=== PATIENT | female | born 1960 | race Caucasian/White ===

== ENCOUNTER 2024-01-06 08:09 | Emergency (ER) | payer MEDICARE, SELFPAY ==
[2024-01-06 08:10] VITALS: BP 178/110
--- NOTE | 2024-01-06 08:14 | ED.GENMED ---
History of Present Illness
General
Chief Complaint: Abdominal Pain
Time Seen by Provider: 01/06/24 08:13
Travel History
Have you had any contact with someone who has COVID-19?: No
Do you have any symptoms of coronavirus? Fever > 100 degrees, chills, cough, shortness of breath, sore throat, loss of taste or smell, muscle aches, or headache?: No
History of Present Illness
History of Present Illness:
HPI: The patient presents with right-sided abdominal pain. She points to the mid axillary line of the abdomen indicating the location of the pain. She has had pain like this several times in the past. She has no nausea, vomiting, diarrhea, or
constipation. She denies any other symptoms such as headaches or fevers. She has had similar kind of pain in the past. She still has a good appetite currently.
EXAM:
GENERAL: Well appearing in no distress
HEENT: Moist oral mucosa
CARDIOVASCULAR: No murmurs, normal heart rate and rhythm, No chest wall tenderness
PULMONARY: No respiratory distress, breath sounds are clear and equal
ABDOMEN: Soft with no peritoneal signs, there is very mild tenderness in the left side of the abdomen tenderness in the right lower quadrant, there is no right upper quadrant tenderness, elevated BMI noted
NEUROLOGIC: Excellent strength all extremities, no coordination deficits
PSYCHIATRIC: Appropriate mental status, normal insight and judgement
EXTREMITIES: Nontender, no edema, moves all extremities equally
SKIN: No rash, no lesions
ED COURSE:
8:20 AM: I initially evaluated
NUMBER AND COMPLEXITY OF PROBLEMS ADDRESSED AT THE ENCOUNTER
� Chronic conditions affecting care: IBS, history of anxiety/depression, has had hysterectomy and cholecystectomy, hypothyroidism
� Acute Exacerbation and/or Progression of Chronic Illness: This is an acute problem however the patient has had similar unexplained episodes in the past
� Differential Diagnosis includes: Exacerbation of IBS, diverticulitis, appendicitis, abdominal muscle strain
AMOUNT AND/OR COMPLEXITY OF DATA TO BE REVIEWED AND ANALYZED
� I performed an independent evaluation of and my interpretation is:
EKG:
CT: CT shows normal appendix. I did review radiologist interpretation in which MRCP is recommended as well however the pain is much lower.
X-rays:
Laboratory Studies: CBC normal, chemistries including LFTs and lipase are normal, urinalysis is unremarkable
Other:
� Review of other/old records: I reviewed old records. The patient had a colonoscopy in November 2022iverticulosis was noted. The patient had a CAT scan of the abdomen pelvis with oral and IV contrast in 2019 that was
unremarkable.
� Clinical information was obtained by an independent historian: None needed, but I did speak to the on reassessment at 10:40 AM
� Prescriptions/Medications Considered but not given:
� Further testing considered but not performed:
RISK OF COMPLICATIONS AND/OR MORBIDITY OR MORTALITY OF PATIENT MANAGEMENT
� Social determinants of health affecting care: Lives at home
� Discussion with other providers:
� Escalation of care including admission/observation vs risk of discharge considered: Given the patient's age with diffuse but mild tenderness, CT imaging was obtained which was relatively unremarkable. On reassessment at 10:40
AM, the patient appears fairly comfortable. I reviewed all results with patient and need for MRI/MRCP as an outpatient.
Past History
Past History
ED Past Medical History: Hypothyroidism and Psychiatric (Depression)
ED Past Surgical History: Cholecystectomy (2019) and Gynecological (Hysterectomy, unilateral salpingo-oophorectomy)
Social History
Tobacco: Non-smoker
Alcohol: Occasional
Personal:
Living: with family
Employment: Employed
Family History
Family History: CAD
Phy Exam
Physical Exam
Physical Exam:
See HPI
Course
Orders/Labs/Results
Orders:
Orders
01/06/24 08:28
CT Abd/pelvis W Iv Cont Urgent
Comment:
Reason For Exam: R>L abd pain
01/06/24 08:29
0.9% Sodium Chloride 1000 ml [Nss] 1,000 ml IV BOLUS
01/06/24 08:33
Complete Blood Count/With Diff Urgent
Comprehensive Metabolic Panel Urgent
Lipase Urgent
Urinalysis Reflex To Culture Urgent
Date Specimen was Collected: 01/06/24
Time Specimen was Collected: 08:31
Abnormal Lab Results
01/06/24
08:33
MPV 10.7 H fL
(7.4-10.4)
Eosinophils % 6.3 H %
(0-6)
Chloride 109 H mmol/L
(98-107)
01/06/24 08:33
01/06/24 08:33
Vital Signs
Initial and Last Documented VS:
Initial Vital Signs
Temp Pulse Resp BP Pulse Ox
97.9 F 88 16 178/110 97
01/06/24 08:10 01/06/24 08:10 01/06/24 08:10 01/06/24 08:10 01/06/24 08:10
Last Documented Vital Signs
Temp Pulse Resp BP Pulse Ox
97.9 F 88 16 178/110 94
01/06/24 08:10 01/06/24 08:10 01/06/24 08:10 01/06/24 08:10 01/06/24 09:00
*Critical Care Note
Total Time (30-74mins, 75-104mins- exclusive of procedures): Not Applicable
ED Attending Note
-
Portions of this chart may have been created with voice recognition software.� Occasional wrong word or��sound alike� substitutions may have occurred due to the inherent limitations of voice recognition software.
Discharge Plan
Departure
Prescriptions:
No Action
levothyroxine 88 MCG tablet
88 mcg PO DAILY
alprazolam 0.5 MG tablet
0.5 mg PO Q6HPRN PRN (Reason: as directed)
sertraline 50 MG tablet
50 mg PO HS
ondansetron 4 MG tablet,disintegrating
4 mg PO TIDPRN PRN (Reason: nausea/vomiting) Qty: 6 0RF
Referrals:
Gray Karimi, DO [Family Provider] -
Interventions
Interventions:
*Risk Screen - Suicide Last Done: 01/06/24 08:44
*General Assessment Last Done: 01/06/24 08:44
*Neglect/Abuse Screening Last Done: 01/06/24 08:44
*ED COVID-19 Vaccine History Last Done: 01/06/24 08:10
[facility] Assessment Last Done: 01/06/24 08:44
[2024-01-06] MEDS: NSS 1000 IV (08:42)
[2024-01-06 08:43] VITALS: BMI 35.2
[2024-01-06 09:17] LABS: % Eosinophils 6.3 % (0-6); % Immature Granulocytes 0.5 % (0-0.5); % Monocytes 6.8 % (1.7-9.3); % Neutrophils 54.4 % (42.2-75.2); Absolute Basophils 0.1 10^3/uL (0-0.2); Absolute Eosinophils 0.4 10^3/uL (0-0.7); Absolute Lymphocytes 1.9 10^3/uL (1.2-3.4); Absolute Monocytes 0.4 10^3/uL (0.1-0.6); Absolute Neutrophils 3.4 10^3/uL (1.4-6.5); Hematocrit 43.4 % (37.0-47.0); Hemoglobin 14.7 g/dL (12.0-16.0); Mean Corp Hgb Conc. 33.9 g/dL (33.0-37.0); Mean Corpuscular Hgb 29.3 pg (27.0-31.0); Mean Corpuscular Volume 86.5 fL (81.0-99.0); Mean Platelet Volume 10.7 fL (7.4-10.4); Nucleated Red Blood Cells % 0 %; Platelet Count 208 10^3/uL (130-400); Red Blood Cell Count 5.02 10^6/uL (4.20-5.40); Red Cell Dist. Width 13.7 % (11.5-14.5); White Blood Cell Count 6.2 10^3/uL (4.8-10.8)
[2024-01-06 09:25] LABS: Urine Albumin Negative (Neg - Trace); Urine Bilirubin Negative (Negative); Urine Character Clear (Clear); Urine Color Yellow; Urine Glucose Negative (Negative); Urine Ketone Negative (Negative); Urine Leukocyte Negative (Negative); Urine Nitrite Negative (Negative); Urine Occult Blood Negative (Negative); Urine Urobilinogen Negative (Neg - 1+)
[2024-01-06 09:31] LABS: ALT (SGPT) 27 U/L (0-35); AST (SGOT) 21 U/L (14-36); Albumin 4.1 g/dl (3.5-5.0); Alkaline Phosphatase 114 U/L (38-126); Blood Urea Nitrogen 15 mg/dl (7-17); Calcium 8.7 mg/dl (8.4-10.2); Carbon Dioxide 24 mmol/L (22-30); Chloride 109 mmol/L (98-107); Estimated Creatinine Clearance 96 ml/min; Glucose 86 mg/dl (70-99); Lipase 109 U/L (23-300); Potassium 4.3 mmol/L (3.5-5.1); Sodium 139 mmol/L (135-145); Total Bilirubin 0.8 mg/dl (0.2-1.3); Total Protein 6.4 g/dl (6.3-8.2); eGFR > 60.00
[2024-01-06 10:46] VITALS: BP 167/94
== END 2024-01-06 11:16 | disposition home or self-care (01) ==
LOC: EMR 08:09
PROVIDERS: EMERGENCY PHYSICIAN Emergency Medicine; FAMILY PHYSICIAN Family Medicine
DX: R10.9 Unspecified abdominal pain (principal); F41.9 Anxiety disorder, unspecified; F32.A Depression, unspecified
CPT/HCPCS: 99285; 96360; 74177; 80053; 81003; 83690; 85025; Q9967

== ENCOUNTER → 2024-01-14 19:29 | Outpatient (REF) | payer MEDICARE, SELFPAY | LOC: MRI 19:29 | PROVIDERS: ATTENDING PHYSICIAN Family Medicine | DX: K86.89 Other specified diseases of pancreas (principal) | CPT/HCPCS: 74183; A9575 ==

== ENCOUNTER → 2024-08-16 18:51 | Outpatient (REF) | payer MEDICARE, SELFPAY | LOC: MRI 18:51 | PROVIDERS: ATTENDING PHYSICIAN Internal Medicine Gastroenterology; PRIMARYCARE PHYSICIAN Family Medicine | DX: K86.2 Cyst of pancreas (principal) | CPT/HCPCS: 74183; A9575 ==

== ENCOUNTER 2025-01-23 14:33 | Emergency (ER) | payer MEDICARE, SELFPAY ==
[2025-01-23 14:35] VITALS: BP 141/101
[2025-01-23 15:21] LABS: % Basophils 1.2 % (0-2); % Immature Granulocytes 0.3 % (0-0.5); % Lymphocytes 38.1 % (20.5-51.1); % Monocytes 6.4 % (1.7-9.3); Absolute Basophils 0.1 10^3/uL (0-0.2); Absolute Eosinophils 0.5 10^3/uL (0-0.7); Absolute Lymphocytes 2.6 10^3/uL (1.2-3.4); Absolute Monocytes 0.4 10^3/uL (0.1-0.6); Absolute Neutrophils 3.2 10^3/uL (1.4-6.5); Hematocrit 40.6 % (37.0-47.0); Hemoglobin 13.9 g/dL (12.0-16.0); Mean Corp Hgb Conc. 34.2 g/dL (33.0-37.0); Mean Corpuscular Hgb 29.3 pg (27.0-31.0); Mean Corpuscular Volume 85.7 fL (81.0-99.0); Nucleated Red Blood Cells % 0 %; Platelet Count 222 10^3/uL (130-400); Red Blood Cell Count 4.74 10^6/uL (4.20-5.40); Red Cell Dist. Width 13.2 % (11.5-14.5); White Blood Cell Count 6.7 10^3/uL (4.8-10.8)
[2025-01-23 15:22] LABS: Urine Albumin Negative (Neg - Trace); Urine Bilirubin Negative (Negative); Urine Character Clear (Clear); Urine Color Yellow; Urine Glucose Negative (Negative); Urine Ketone Negative (Negative); Urine Leukocyte 3+ (Negative); Urine Nitrite Negative (Negative); Urine Occult Blood Negative (Negative); Urine Specific Gravity 1.015 (<1.030); Urine Urobilinogen Negative (Neg - 1+)
[2025-01-23 15:32] LABS: ALT (SGPT) 18 U/L (0-35); AST (SGOT) 17 U/L (14-36); Albumin 4.6 g/dl (3.5-5.0); Alkaline Phosphatase 59 U/L (38-126); Blood Urea Nitrogen 20 mg/dl (7-17); Calcium 9.1 mg/dl (8.4-10.2); Carbon Dioxide 27 mmol/L (22-30); Chloride 103 mmol/L (98-107); Glucose 73 mg/dl (70-99); Potassium 3.8 mmol/L (3.5-5.1); Sodium 139 mmol/L (135-145); Total Bilirubin 1.3 mg/dl (0.2-1.3); Total Protein 6.5 g/dl (6.3-8.2); eGFR > 60.00
[2025-01-23 15:33] LABS: Lipase 120 U/L (23-300)
[2025-01-23 15:49] LABS: Urine Red Blood Cell 0-2 /HPF (0-2); Urine Squamous Cell 16-20 /LPF (Few)
[2025-01-23 15:50] LABS: Urine Amorphous Seen; Urine Bacteria Many (Negative); Urine White Cell 16-20 /HPF (0-5)
[2025-01-23 17:07] VITALS: BMI 26.7
--- NOTE | 2025-01-23 17:07 | ED.GENMED ---
History of Present Illness
General
Chief Complaint: Abdominal Pain
Source: patient
Exam Limitations: none
Time Seen by Provider: 01/23/25 16:34
Nursing documentation reviewed up to this point in time: agreed with
History of Present Illness
History of Present Illness:
Patient to ED with complaint of right sided chest pain and generalized chest tightness. Symptoms started last week. She was seen by PCP, blood work ordered. She was told to come to ED if symmptoms worsenened. States symmptoms are constant and
seems worse today. Brought self to ED for eval. Denies fever/chills, recent illness. No n/v/d. Denies cough. NO leg pain or swelling. No prior history of same.
Past History
Past History
ED Past Medical History: Hypothyroidism and Psychiatric (Depression)
ED Past Surgical History: Cholecystectomy (2019) and Gynecological (Hysterectomy, unilateral salpingo-oophorectomy)
Social History
Tobacco: Non-smoker
Alcohol: Occasional
Personal:
Living: with family
Employment: Employed
Family History
Family History: CAD
Review of Systems
Review of Systems
Allergies reviewed?: Yes
All Other Systems: ROS reviewed and negative except as documented in HPI and ROS
Constitutional: Reports no symptoms
EENT: Reports no symptoms
Respiratory: Reports no symptoms
Cardiac: Reports chest pain (Right sided chest pain radiating to right shoulder) and other (generalized chest tightness.)
ABD/GI: Reports no symptoms
: Reports no symptoms
Musculoskeletal: Reports no symptoms
Skin: Reports no symptoms
Neurological: Reports no symptoms
Psychiatric: Reports no symptoms
Phy Exam
General Physical Exam
General Presentation: well appearing and no apparent distress
General age: appears stated age
General Skin: warm and dry
General Habitus: normal
General Mental: alert
Cardiovascular Exam
Cardiovascular Exam: regular rate/rhythm and no edema
Pulmonary Exam
Pulmonary Exam: lungs clear and no respiratory distress
Gastrointestinal Exam
Gastrointestinal Exam: normal bowel sounds, non tender, soft, no organomegaly, no pulsatile mass and no cva tenderness
Musculoskeletal Exam
Musculoskeletal Exam: full ROM and neuro vasc intact
Skin Exam
Skin Exam: normal color, warm/dry and no rash
Psychiatric Exam
Psychiatric Exam: normal mood/affect
Course
Orders/Labs/Results
Orders:
Orders
01/23/25 14:43
EKG [Electrocardiogram (*1)] Urgent
Reason for Study: Abdominal Pain
EKG- Treatment ONCE
01/23/25 15:05
Complete Blood Count/With Diff Urgent
Comprehensive Metabolic Panel Urgent
Lipase Urgent
Urinalysis Reflex To Culture Urgent
Date Specimen was Collected: 01/23/25
Time Specimen was Collected: 14:43
Urine Microscopic Reflex Cult Urgent
Urine Culture Urgent
BRUCE Source: U
Specimen Description:
Date Specimen was Collected: 01/23/25
Time Specimen was Collected: 14:43
01/23/25 17:22
D-Dimer Urgent
Troponin I Urgent
01/23/25 18:11
CR Chest - 2 Views Urgent
Comment:
Reason For Exam: right chest pain
US Abdomen Complete/Upper Urgent
Comment:
Reason For Exam: upper abd. pain
Abnormal Lab Results
01/23/25
15:05
Eosinophils % 7.0 H %
(0-6)
BUN 20 H mg/dl
(7-17)
Leukocyte Esterase Rfl 3+ A
(Negative)
Urine WBC (Reflex) 16-20 A /HPF
(0-5)
Urine Bacteria (Reflex) Many A
(Negative)
01/23/25 15:05
01/23/25 15:05
Vital Signs
Initial and Last Documented VS:
Initial Vital Signs
Temp Pulse Resp BP Pulse Ox
98.2 F 95 16 141/101 100
01/23/25 14:35 01/23/25 14:35 01/23/25 14:35 01/23/25 14:35 01/23/25 14:35
Last Documented Vital Signs
Temp Pulse Resp BP Pulse Ox
98.2 F 77 18 120/96 97
01/23/25 14:35 01/23/25 20:15 01/23/25 20:15 01/23/25 20:00 01/23/25 20:00
*Radiology
Radiology exam reviewed: radiology read reviewed
*Pulse Oximetry
Patient hypoxic: no
*Critical Care Note
Total Time (30-74mins, 75-104mins- exclusive of procedures): Not Applicable
Update Note
Update Note:
Patient to ED with complaing of right sided chests pain. Pain started last week. Labs reviewed. Troponin neg, DDimer neg. CXR NAD. US no concerning findings. EKG NSR. No findings on exam to explain her pain. she remains awake and alert, in
no distress. WIll discharge home, close follow up with PCP. Given instructions on s/s to return to ED and she is agreeable to plan
ED Attending Note
-
Portions of this chart may have been created with voice recognition software.� Occasional wrong word or��sound alike� substitutions may have occurred due to the inherent limitations of voice recognition software.
Discharge Plan
Departure
Patient Disposition: Home (Routine Discharge)
Date of Disposition: 01/23/25
Time of Disposition: 20:07
Patient with high blood pressure during this ER visit?: No
Condition: Good
Covid-19: Not Applicable
Discharge Problem:
Chest pain
Instructions: Chest Pain PCP Follow Up
Prescriptions:
No Action
levothyroxine 88 MCG tablet
88 mcg PO DAILY
alprazolam 0.5 MG tablet
0.5 mg PO Q6HPRN PRN (Reason: as directed)
sertraline 50 MG tablet
50 mg PO HS
ondansetron 4 MG tablet,disintegrating
4 mg PO TIDPRN PRN (Reason: nausea/vomiting) Qty: 6 0RF
Referrals:
Gray Karimi DO [Family Provider] -
Activity Restrictions/Additional Instructions:
Follow up with your family doctor. Return to the emergency department immediately for any changes in/worsening of your symptoms
Interventions
Interventions:
*Risk Screen - Suicide Last Done: 01/23/25 14:35
*General Assessment Last Done: 01/23/25 17:09
*Neglect/Abuse Screening Last Done: 01/23/25 14:35
*ED- Fall Risk Assessment Last Done: 01/23/25 17:09
*ED COVID-19 Vaccine History Last Done: 01/23/25 17:09
*Nursing Disposition Last Done: 01/23/25 20:37
[facility] Assessment Last Done: 01/23/25 17:09
Discharge Date and Time
Discharge Date/Time: 01/23/25 20:37
Print Language: PANAMANIAN
[2025-01-23 17:20] VITALS: BP 132/94
[2025-01-23 17:59] LABS: Troponin I < 0.012 ng/ml
[2025-01-23 18:00] VITALS: BP 116/79
[2025-01-23 18:03] LABS: D-Dimer < 0.27 ug/mlFEU (0.00-0.50)
[2025-01-23 20:00] VITALS: BP 120/96
== END 2025-01-23 20:37 | disposition home or self-care (01) ==
LOC: EMR 14:33
PROVIDERS: Nurse Practitioner; EMERGENCY PHYSICIAN Emergency Medicine; FAMILY PHYSICIAN Family Medicine
DX: R07.89 Other chest pain (principal); E03.9 Hypothyroidism, unspecified; Z90.49 Acquired absence of other specified parts of digestive tract; Z90.710 Acquired absence of both cervix and uterus
CPT/HCPCS: 99285; 71046; 76700; 80053; 81003; 81015; 83690; 84484; 85025; 85379; 87086; 93005